=== PATIENT | male | born 1945 | race Caucasian/White ===

== ENCOUNTER 2023-09-07 12:22 | Outpatient (BNV) | payer MEDICARE, OTHER, SELFPAY | END 2023-09-10 10:00 | PROVIDERS: Admitting Provider Psychiatry & Neurology Psychiatry; Visit Provider Internal Medicine Cardiovascular Disease | DX: I45.2 Bifascicular block (principal) | CPT/HCPCS: 93010 ==

== ENCOUNTER 2023-09-07 12:22 | Inpatient (IN) | payer MEDICARE, OTHER, SELFPAY ==
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
[2023-09-07 17:00] VITALS: BP 127/70; PULSE 96; RESP 18; TEMP 36.1; O2SAT 99
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
--- NOTE | 2023-09-07 18:42 | PC.NURSE ---
Patient refusing VS monitoring until 17:00. Also agreed to sign consent for his , refused rest of the consents and assessments.
[2023-09-08] MEDS: traZODone HCL 50 MG TABLET PO (00:54)
[2023-09-08] MEDS: hydrOXYzine HCL 25 MG TABLET PO (00:54)
[2023-09-08 09:30] VITALS: BP 109/78; PULSE 81; RESP 18; TEMP 36.1; O2SAT 98
[2023-09-08 11:00] VITALS: BMI 33.7
[2023-09-08] MEDS: Escitalopram Oxalate 10 MG TABLET PO (11:26)
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
--- NOTE | 2023-09-08 17:08 | PC.NURSE ---
Patient agreed to adm.assessments after several attempts. Also agreed to skin assessment. Pt with healing laceration to abdominal wall, Red, dry, scaly skin to bilateral LE. Red areas on abdominal folds. Patient signed consent/release to [facility].
[2023-09-08 18:00] VITALS: BP 96/60; PULSE 96; RESP 16; TEMP 36.6; O2SAT 100
[2023-09-08] MEDS: Gabapentin 300 MG CAPSULE PO ×2 (21:10→21:15)
[2023-09-08] MEDS: Omeprazole 20 MG CAPSULE.DR PO (21:10)
[2023-09-08] MEDS: QUEtiapine Fumarate 100 MG TABLET PO (21:10)
--- NOTE | 2023-09-09 | ECG_ITS ---
Test Reason : chest pain Blood Pressure : / mmHG Vent. Rate : 087 BPM Atrial Rate : 087 BPM P-R Int : 178 ms QRS Dur : 138 ms QT Int : 408 ms P-R-T Axes : 086 -54 047 degrees QTc Int : 490 ms Sinus rhythm with Premature atrial complexes Right bundle branch block Left anterior fascicular block Bifascicular block Septal infarct , age undetermined Abnormal ECG No previous ECGs available Referred By: Perla Eng Electronically Signed By:RAYNA ZARAGOZA MD
[2023-09-09 07:00] VITALS: BMI 33.6
[2023-09-09 08:32] VITALS: BP 116/63; PULSE 80; RESP 18; TEMP 36.6; O2SAT 98
[2023-09-09] MEDS: Escitalopram Oxalate 10 MG TABLET PO (08:40)
[2023-09-09] MEDS: Atorvastatin Calcium 40 MG TABLET PO (08:40)
[2023-09-09] MEDS: Metoprolol Succinate ER 50 MG TAB.ER.24H PO (08:40)
[2023-09-09] MEDS: Omeprazole 20 MG CAPSULE.DR PO ×2 (08:41→20:43)
[2023-09-09] MEDS: Levothyroxine Sodium 50 MCG TABLET PO (08:41)
[2023-09-09] MEDS: hydrOXYzine HCL 25 MG TABLET PO ×2 (08:41→20:43)
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
--- NOTE | 2023-09-09 11:25 | PC.NURSE ---
Notified Dr. Eng that Salomón declined blood work this morning. Also requested from Dr. Eng that Gabapentin be changed fgrom 0900 to 2100 per Salomón's request.
[2023-09-09 14:21] VITALS: BMI 33.8
[2023-09-09 16:54] LABS: Magnesium 2.3 mg/dL (1.6-2.6)
[2023-09-09 17:27] LABS: Troponin-I High Sensitivity 99.1 ng/L (<3.5-35.0)
--- NOTE | 2023-09-09 17:40 | PC.NURSE ---
Troponin elevated 99.1 and Salomón currently denies chest pain. Trinity Magana QC CHEMIST notified.
[2023-09-09 18:00] VITALS: BP 148/88; PULSE 94; RESP 18; TEMP 36.4; O2SAT 99
[2023-09-09 19:14] LABS: Hematocrit 38.5 % (42.0-52.0); Hemoglobin 12.8 g/dl (14.0-18.0); Mean Corpuscular HGB Conc 33.2 g/dl (31.0-36.0); Mean Corpuscular Hemoglobin 32.8 pg (27.0-33.0); Mean Corpuscular Volume 98.7 fL (80.0-98.0); Mean Platelet Volume 11.8 fL (9.4-12.4); Platelet Count 257 X10*3/uL (160-400); Red Cell Distribution Width 15.1 % (11.0-16.0); White Blood Count 10.9 X10*3/uL (4.8-10.8)
[2023-09-09 19:31] LABS: Alanine Aminotransferase 37 U/L (0-40); Albumin Level 3.9 g/dL (3.5-5.0); Alkaline Phosphatase 87 U/L (39-117); Anion Gap 13 (12-20); Aspartate Amino Transferase 35 U/L (5-37); Bilirubin Direct 0.6 mg/dL (0.0-0.5); Bilirubin Total 1.7 mg/dL (0.0-1.0); Blood Urea Nitrogen 40 mg/dL (9-16); Calcium 9.3 mg/dL (8.4-10.2); Carbon Dioxide 25 mmol/L (22-29); Chloride 104 mmol/L (96-108); Creatinine Clr Calc Pharmacy 46.7; Estimated Glomerular Filt Rate 38; Glucose Random 95 mg/dL (60-115); Potassium 4.5 mmol/L (3.3-5.1); Sodium 137 mmol/L (135-145); Total Protein 7.9 g/dL (6.5-8.0)
[2023-09-09 19:37] LABS: Troponin-I High Sensitivity 92.7 ng/L (<3.5-35.0)
[2023-09-09] MEDS: QUEtiapine Fumarate 100 MG TABLET PO (20:43)
[2023-09-09] MEDS: Gabapentin 300 MG CAPSULE PO (20:43)
[2023-09-09] MEDS: traZODone HCL 50 MG TABLET PO (20:43)
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
--- NOTE | 2023-09-10 | ECG_ITS ---
Test Reason : r/o mi, hypoxic Blood Pressure : / mmHG Vent. Rate : 086 BPM Atrial Rate : 086 BPM P-R Int : 178 ms QRS Dur : 138 ms QT Int : 406 ms P-R-T Axes : 047 -58 035 degrees QTc Int : 485 ms Sinus rhythm with Premature atrial complexes Right bundle branch block Left anterior fascicular block Bifascicular block Septal infarct (cited on or before 09-SEP-2023) Abnormal ECG When compared with ECG of 09-SEP-2023 15:50, Questionable change in initial forces of Septal leads Referred By: Enzo Holland Electronically Signed By:RAYNA ZARAGOZA MD
[2023-09-10 04:50] VITALS: BP 124/75; PULSE 84; RESP 16; TEMP 35.9; O2SAT 99
[2023-09-10 05:06] VITALS: BP 124/75; PULSE 84; RESP 16; TEMP 35.9; O2SAT 99
[2023-09-10] MEDS: Levothyroxine Sodium 50 MCG TABLET PO ×2 (05:26→09:49)
[2023-09-10 08:24] LABS: Alanine Aminotransferase 35 U/L (0-40); Albumin Level 3.5 g/dL (3.5-5.0); Alkaline Phosphatase 74 U/L (39-117); Anion Gap 15 (12-20); Aspartate Amino Transferase 30 U/L (5-37); Bilirubin Total 1.4 mg/dL (0.0-1.0); Blood Urea Nitrogen 42 mg/dL (9-16); Calcium 8.9 mg/dL (8.4-10.2); Carbon Dioxide 23 mmol/L (22-29); Chloride 104 mmol/L (96-108); Cholesterol 109 mg/dL (<200); Estimated Glomerular Filt Rate 40; Glucose Fasting 102 mg/dL (60-99); HDL Cholesterol 27 mg/dL (>40); LDL Cholesterol Calculated 65 mg/dL (<100); Potassium 4.3 mmol/L (3.3-5.1); Sodium 138 mmol/L (135-145); Triglycerides 85 mg/dL (<150)
[2023-09-10 08:40] LABS: Thyroid Stimulating Hormone 7.45 uIU/mL (0.32-4.0)
[2023-09-10 08:48] LABS: Folate 5.1 ng/mL (> or = 4.0); Vitamin B12 429 pg/mL (200-900)
[2023-09-10 09:36] LABS: Troponin-I High Sensitivity 62.6 ng/L (<3.5-35.0)
[2023-09-10] MEDS: Atorvastatin Calcium 40 MG TABLET PO (09:48)
[2023-09-10] MEDS: Omeprazole 20 MG CAPSULE.DR PO ×2 (09:48→21:34)
[2023-09-10] MEDS: Escitalopram Oxalate 10 MG TABLET PO (09:48)
[2023-09-10] MEDS: Metoprolol Succinate ER 50 MG TAB.ER.24H PO (09:48)
[2023-09-10] MEDS: Aspirin 81 MG TAB.CHEW PO (09:57)
[2023-09-10 10:11] LABS: ABG Base Excess -2.7 mmol/L; ABG HCO3 21 mmol/L (22-26); ABG pCO2 34 mmHg (32-45); ABG pO2 102 mmHg (83-108)
[2023-09-10 10:15] VITALS: BP 104/60; PULSE 86; RESP 18; TEMP 36.9; O2SAT 99
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
[2023-09-10 18:00] VITALS: BP 111/74; PULSE 67; RESP 18; TEMP 36.1
[2023-09-10] MEDS: Gabapentin 300 MG CAPSULE PO (21:34)
[2023-09-10] MEDS: traZODone HCL 50 MG TABLET PO (21:34)
[2023-09-10] MEDS: hydrOXYzine HCL 25 MG TABLET PO (21:34)
[2023-09-10] MEDS: QUEtiapine Fumarate 100 MG TABLET PO (21:34)
[2023-09-10] MEDS: Acetaminophen 325 MG TABLET 650 MG PO (21:55)
[2023-09-11 08:49] VITALS: BP 97/60; PULSE 82; RESP 16; TEMP 36.3; O2SAT 100
--- NOTE | 2023-09-11 09:20 | PC.NURSE ---
BP 97/[address] Pulliam notified.
[2023-09-11] MEDS: Levothyroxine Sodium 50 MCG TABLET PO (09:27)
[2023-09-11] MEDS: Aspirin 81 MG TAB.CHEW PO (09:27)
[2023-09-11] MEDS: Atorvastatin Calcium 40 MG TABLET PO (09:27)
[2023-09-11] MEDS: Omeprazole 20 MG CAPSULE.DR PO ×2 (09:27→21:18)
[2023-09-11] MEDS: Escitalopram Oxalate 10 MG TABLET PO (09:27)
[2023-09-11] MEDS: Metoprolol Succinate ER 50 MG TAB.ER.24H PO (09:27)
[2023-09-11] MEDS: Acetaminophen 325 MG TABLET 650 MG PO ×2 (09:28→21:18)
--- NOTE | 2023-09-11 10:26 | P.PNPSI_ITS ---
Subjective Subjective Date of Service: 09/11/23 Reason For Visit: Major depressive disorder Subjective Notes: Conditional Voluntary Interim History: Met with patient. Discussed with Nursing. Overall quite talkative. Reports he has been feeling depressed in the context of his being at a alf for/ care facility. Went over admission circumstances and stated that he poked himself by accident with an item that resembled a sword fish. Was adamant he did not stab himself. Reported being uncertain regarding disposition in the context of his being in hospital. Reports feeling well cared for. Sleep has been okay. No med concerns. Feels safe. No SI. Medication Compliance: Yes Side effects from medications: No Attending Groups: Yes Review of Systems Acute medical concerns: No Review of Systems Review of Systems Nothing acute Mental Status Exam Mental Status Exam Patient Appearance: Appropriate Patient Orientation: Person and Situation Level of Consciousness: Awake and Appropriate Patient Behavior: Appropriate and Cooperative Mood Description: Calm Affect Description: Constricted Patient Cognition Impaired: Yes Ability to Follow Directions: Good Speech Pattern: Clear and Excessive Hallucinations: None Delusions: Not Present Thought Process: Distracted and Slowed Thinking Thought Content: positive for [place] and positive for Poverty of Content Judgement: Fair Diagnostics Vital Signs (24Hr): Vital Signs - 24 hr 09/10/23 18:00 09/11/23 08:49 Temperature 96.9 F 97.3 F Pulse Rate 67 82 Respiratory Rate 18 16 Blood Pressure 111/74 97/60 Pulse Oximetry 100 Oxygen Delivery Method Room Air BMI result Body Mass Index 33.8 Labs 09/09/23 19:05 09/10/23 07:30 Labs: Laboratory Results - last 48 hr 09/09/23 09/09/23 09/09/23 16:31 19:03 19:05 WBC 10.9 H RBC 3.90 L Hgb 12.8 L Hct 38.5 L MCV 98.7 H MCH 32.8 MCHC 33.2 RDW 15.1 Plt Count 257 MPV 11.8 Absolute Nucleated RBC 0.000 Nucleated RBC % (auto) 0.0 O2 Saturation ABG pH at Pt Temp ABG pCO2 at Pt Temp ABG pO2 at Pt Temp ABG HCO3 ABG Base Excess (Actual) Sodium 137 Potassium 4.5 Chloride 104 Carbon Dioxide 25 Anion Gap 13 BUN 40 H Creatinine 1.74 H Estim Creat Clear Calc 46.7 Estimated GFR 38 Random Glucose 95 Fasting Glucose Calcium 9.3 Magnesium 2.3 Total Bilirubin 1.7 H Direct Bilirubin 0.6 H AST 35 ALT 37 Alkaline Phosphatase 87 Total Creatine Kinase 48 Troponin I High Sens 99.1 H 92.7 H Total Protein 7.9 Albumin 3.9 Triglycerides Cholesterol LDL Cholesterol, Calc HDL Cholesterol Vitamin B12 Folate TSH 09/10/23 09/10/23 09/10/23 07:30 09:07 10:03 WBC RBC Hgb Hct MCV MCH MCHC RDW Plt Count MPV Absolute Nucleated RBC Nucleated RBC % (auto) O2 Saturation 99.0 ABG pH at Pt Temp 7.40 ABG pCO2 at Pt Temp 34 ABG pO2 at Pt Temp 102 ABG HCO3 21 L ABG Base Excess (Actual) -2.7 Sodium 138 Potassium 4.3 Chloride 104 Carbon Dioxide 23 Anion Gap 15 BUN 42 H Creatinine 1.66 H Estim Creat Clear Calc 49.0 Estimated GFR 40 Random Glucose Fasting Glucose 102 H Calcium 8.9 Magnesium Total Bilirubin 1.4 H Direct Bilirubin AST 30 ALT 35 Alkaline Phosphatase 74 Total Creatine Kinase 51 Cancelled Troponin I High Sens 62.6 H Total Protein 7.0 Albumin 3.5 Triglycerides 85 Cholesterol 109 LDL Cholesterol, Calc 65 HDL Cholesterol 27 L Vitamin B12 429 Folate 5.1 TSH 7.45 H Medications Medications Current Medications Acetaminophen (Acetaminophen 325 Mg Tablet) 650 mg PO Q6H PRN PRN Reason: Headache/Pain Mild Scale (1-3) Last Admin: 09/11/23 09:28 Dose: 650 mg Al Hydroxide/Mg Hydroxide (Magnesium Hydrox/Alum Hydrox 30 Ml Oral.Susp) 30 ml PO Q6H PRN PRN Reason: Heartburn/Nausea Aspirin (Aspirin 81 Mg Tab.Chew) 81 mg PO DAILY [facility] Last Admin: 09/11/23 09:27 Dose: 81 mg Atorvastatin Calcium (Atorvastatin Calcium 40 Mg Tablet) 40 mg PO DAILY [facility] Last Admin: 09/11/23 09:27 Dose: 40 mg Dorzolamide/Timolol (Dorzolamide/Timolo 2.23%/0.68% 10 Ml Drbtl) 1 drop EYE- BOTH BID [facility] Last Admin: 09/11/23 09:33 Dose: Not Given Escitalopram Oxalate (Escitalopram Oxalate 10 Mg Tablet) 10 mg PO DAILY [facility] Last Admin: 09/11/23 09:27 Dose: 10 mg Gabapentin (Gabapentin 300 Mg Capsule) 300 mg PO BEDTIME [facility] Last Admin: 09/10/23 21:34 Dose: 300 mg Hydrocortisone (Hydrocortisone 1 % Cream 28.35 Gm Tube) 1 appl TOPICAL BID [facility] Last Admin: 09/11/23 09:33 Dose: Not Given Hydroxyzine HCl (Hydroxyzine Hcl 25 Mg Tablet) 25 mg PO Q6H PRN PRN Reason: Anxiety Last Admin: 09/10/23 21:34 Dose: 25 mg Lactic Acid (Ammonium Lactate 12 % Lotion 226 Gm Bottle) 1 appl TOPICAL BID [facility]; Protocol Last Admin: 09/11/23 09:33 Dose: Not Given Latanoprost (Latanoprost 0.005 % Ophth Misty 2.5 Ml Drops) 1 drop EYE-BOTH BEDTIME [facility] Last Admin: 09/10/23 21:41 Dose: Not Given Levothyroxine Sodium (Levothyroxine Sodium 50 Mcg Tablet) 50 mcg PO DAILY [facility] Last Admin: 09/11/23 09:27 Dose: 50 mcg Magnesium Hydroxide (Milk Of Magnesia 30 Ml Oral.Susp) 30 ml PO DAILY PRN PRN Reason: Constipation Metoprolol Succinate (Metoprolol Succinate Er 50 Mg Tab.Er.24h) 50 mg PO DAILY [facility]; Protocol Last Admin: 09/11/23 09:27 Dose: 50 mg Omeprazole (Omeprazole 20 Mg Capsule.Dr) 20 mg PO BID [facility] Last Admin: 09/11/23 09:27 Dose: 20 mg Quetiapine Fumarate (Quetiapine Fumarate 100 Mg Tablet) 100 mg PO BEDTIME [facility] Last Admin: 09/10/23 21:34 Dose: 100 mg Quetiapine Fumarate (Quetiapine Fumarate 50 Mg Tablet) 50 mg PO BID PRN PRN Reason: agitation Trazodone HCl (Trazodone Hcl 50 Mg Tablet) 50 mg PO BEDTIME MRX1 PRN PRN Reason: Insomnia Last Admin: 09/10/23 21:34 Dose: 50 mg Allergies Allergies Allergy/AdvReac Type Severity Reaction Status Date / Time No Known Allergies Allergy Verified 09/07/23 14:57 Assessment & Plan Assessment & Plan (1) Elevated troponin: Status: Acute Code(s): R79.89 - Other specified abnormal findings of blood chemistry Assessment and Plan: Elevated troponin in this elderly gentleman with known history of prior CAD. Should obtain old records. This is most likely due to stress created by the roommate situation. Since the situation has changed his not having any significant stress and he is feeling well. Troponins are downtrending. There are no acute ischemic changes. I would continue with metoprolol 50 mg daily along with aspirin and statin therapy. Continue treat his psychiatric disorder and treat his anxiety. No further treatment needs to be pursued. Plan 1. We will try to gather more collateral information. It seems that in the community the patient and his 2. Continue with Lexapro to target depression and anxiety. 3. Continue with medical treatment for his several health problems. 4. Reassessment with results. 09/10: no changes Reason for continued inpatient stay Substantial Risk for: harm to self and rapid decompensation Time Spent With Patient Time: Total time managing care of this patient today ____ minutes.
[2023-09-11 10:37] VITALS: BP 112/65
--- NOTE | 2023-09-11 10:53 | PC.NURSE ---
Recheck of bp 112/65 and / Shasha notified.
[2023-09-11 18:00] VITALS: BP 121/68; PULSE 73; RESP 18; TEMP 36.7; O2SAT 98
[2023-09-11] MEDS: traZODone HCL 50 MG TABLET PO (21:18)
[2023-09-11] MEDS: QUEtiapine Fumarate 100 MG TABLET PO (21:18)
[2023-09-11] MEDS: Gabapentin 300 MG CAPSULE PO (21:19)
[2023-09-11] MEDS: hydrOXYzine HCL 25 MG TABLET PO (21:19)
[2023-09-12 08:45] VITALS: BP 110/65; PULSE 64; RESP 16; TEMP 36.6; O2SAT 98
[2023-09-12] MEDS: Atorvastatin Calcium 40 MG TABLET PO (09:03)
[2023-09-12] MEDS: Escitalopram Oxalate 10 MG TABLET PO (09:03)
[2023-09-12] MEDS: Metoprolol Succinate ER 50 MG TAB.ER.24H PO (09:03)
[2023-09-12] MEDS: Omeprazole 20 MG CAPSULE.DR PO ×2 (09:03→20:18)
[2023-09-12] MEDS: Aspirin 81 MG TAB.CHEW PO (09:03)
[2023-09-12] MEDS: Levothyroxine Sodium 50 MCG TABLET PO (09:04)
[2023-09-12] MEDS: Acetaminophen 325 MG TABLET 650 MG PO ×2 (09:06→20:21)
--- NOTE | 2023-09-12 11:02 | P.PNPSI_ITS ---
Subjective Subjective Date of Service: 09/12/23 Reason For Visit: Major depressive disorder Interim History: Met with patient. Discussed with Nursing. Overall quite talkative, but redirectable. Still uncertainty ref disposition in the context of his being in hospital. Reports feeling well cared for. Sleep has been okay. No med concerns. Feels safe. No SI. Medication Compliance: Yes Side effects from medications: No Attending Groups: Intermittent Review of Systems Acute medical concerns: No Review of Systems Review of Systems Nothing acute Mental Status Exam Mental Status Exam Patient Appearance: Appropriate Patient Orientation: Person and Situation Level of Consciousness: Awake and Appropriate Patient Behavior: Appropriate and Cooperative Mood Description: Calm Affect Description: Constricted Patient Cognition Impaired: Yes Ability to Follow Directions: Good Speech Pattern: Clear and Excessive Diagnostics Vital Signs (24Hr): Vital Signs - 24 hr 09/11/23 18:00 09/12/23 08:45 Temperature 98.1 F 97.8 F Pulse Rate 73 64 Respiratory Rate 18 16 Blood Pressure 121/68 110/65 Pulse Oximetry 98 98 Oxygen Delivery Method Room Air Room Air BMI result Body Mass Index 33.8 Labs 09/09/23 19:05 09/10/23 07:30 Medications Medications Current Medications Acetaminophen (Acetaminophen 325 Mg Tablet) 650 mg PO Q6H PRN PRN Reason: Headache/Pain Mild Scale (1-3) Last Admin: 09/12/23 09:06 Dose: 650 mg Al Hydroxide/Mg Hydroxide (Magnesium Hydrox/Alum Hydrox 30 Ml Oral.Susp) 30 ml PO Q6H PRN PRN Reason: Heartburn/Nausea Aspirin (Aspirin 81 Mg Tab.Chew) 81 mg PO DAILY [facility] Last Admin: 09/12/23 09:03 Dose: 81 mg Atorvastatin Calcium (Atorvastatin Calcium 40 Mg Tablet) 40 mg PO DAILY [facility] Last Admin: 09/12/23 09:03 Dose: 40 mg Dorzolamide/Timolol (Dorzolamide/Timolo 2.23%/0.68% 10 Ml Drbtl) 1 drop EYE- BOTH BID [facility] Last Admin: 09/12/23 09:05 Dose: Not Given Escitalopram Oxalate (Escitalopram Oxalate 10 Mg Tablet) 10 mg PO DAILY [facility] Last Admin: 09/12/23 09:03 Dose: 10 mg Gabapentin (Gabapentin 300 Mg Capsule) 300 mg PO BEDTIME [facility] Last Admin: 09/11/23 21:19 Dose: 300 mg Hydrocortisone (Hydrocortisone 1 % Cream 28.35 Gm Tube) 1 appl TOPICAL BID [facility] Last Admin: 09/12/23 09:06 Dose: Not Given Hydroxyzine HCl (Hydroxyzine Hcl 25 Mg Tablet) 25 mg PO Q6H PRN PRN Reason: Anxiety Last Admin: 09/11/23 21:19 Dose: 25 mg Lactic Acid (Ammonium Lactate 12 % Lotion 226 Gm Bottle) 1 appl TOPICAL BID [facility]; Protocol Last Admin: 09/12/23 09:06 Dose: Not Given Latanoprost (Latanoprost 0.005 % Ophth Misty 2.5 Ml Drops) 1 drop EYE-BOTH BEDTIME [facility] Last Admin: 09/11/23 21:42 Dose: Not Given Levothyroxine Sodium (Levothyroxine Sodium 50 Mcg Tablet) 50 mcg PO DAILY [facility] Last Admin: 09/12/23 09:04 Dose: 50 mcg Magnesium Hydroxide (Milk Of Magnesia 30 Ml Oral.Susp) 30 ml PO DAILY PRN PRN Reason: Constipation Metoprolol Succinate (Metoprolol Succinate Er 50 Mg Tab.Er.24h) 50 mg PO DAILY [facility]; Protocol Last Admin: 09/12/23 09:03 Dose: 50 mg Omeprazole (Omeprazole 20 Mg Capsule.Dr) 20 mg PO BID [facility] Last Admin: 09/12/23 09:03 Dose: 20 mg Quetiapine Fumarate (Quetiapine Fumarate 100 Mg Tablet) 100 mg PO BEDTIME [facility] Last Admin: 09/11/23 21:18 Dose: 100 mg Quetiapine Fumarate (Quetiapine Fumarate 50 Mg Tablet) 50 mg PO BID PRN PRN Reason: agitation Trazodone HCl (Trazodone Hcl 50 Mg Tablet) 50 mg PO BEDTIME MRX1 PRN PRN Reason: Insomnia Last Admin: 09/11/23 21:18 Dose: 50 mg Allergies Allergies Allergy/AdvReac Type Severity Reaction Status Date / Time No Known Allergies Allergy Verified 09/07/23 14:57 Assessment & Plan Assessment & Plan (1) Elevated troponin: Status: Acute Code(s): R79.89 - Other specified abnormal findings of blood chemistry Assessment and Plan: Elevated troponin in this elderly gentleman with known history of prior CAD. Should obtain old records. This is most likely due to stress created by the roommate situation. Since the situation has changed his not having any significant stress and he is feeling well. Troponins are downtrending. There are no acute ischemic changes. I would continue with metoprolol 50 mg daily along with aspirin and statin therapy. Continue treat his psychiatric disorder and treat his anxiety. No further treatment needs to be pursued. Plan 1. We will try to gather more collateral information. It seems that in the community the patient and his 2. Continue with Lexapro to target depression and anxiety. 3. Continue with medical treatment for his several health problems. 4. Reassessment with results. 09/10: no changes 09/11: no changes Reason for continued inpatient stay Substantial Risk for: inability to function and rapid decompensation Time Spent With Patient Time: Total time managing care of this patient today ____ minutes.
[2023-09-12 19:35] VITALS: BP 106/69; PULSE 77; RESP 18; TEMP 36.3; O2SAT 98
[2023-09-12] MEDS: QUEtiapine Fumarate 100 MG TABLET PO (20:18)
[2023-09-12] MEDS: Gabapentin 300 MG CAPSULE PO (20:18)
[2023-09-12] MEDS: traZODone HCL 50 MG TABLET PO (20:21)
[2023-09-13] MEDS: Acetaminophen 325 MG TABLET 650 MG PO ×2 (02:29→20:10)
[2023-09-13 07:45] VITALS: BP 97/64; PULSE 65; RESP 16; TEMP 36.4; O2SAT 97
[2023-09-13] MEDS: Aspirin 81 MG TAB.CHEW PO (08:59)
[2023-09-13] MEDS: Escitalopram Oxalate 10 MG TABLET PO (08:59)
[2023-09-13] MEDS: Atorvastatin Calcium 40 MG TABLET PO (08:59)
[2023-09-13] MEDS: Omeprazole 20 MG CAPSULE.DR PO ×2 (08:59→20:07)
[2023-09-13] MEDS: Levothyroxine Sodium 50 MCG TABLET PO (09:00)
--- NOTE | 2023-09-13 12:27 | P.PNPSI_ITS ---
Subjective Subjective Date of Service: 09/13/23 Reason For Visit: Major depressive disorder Subjective Notes: Conditional Voluntary Interim History: The nursing staff reported the patient had been pleasant cooperative calm eating well. He has not attended any groups and he slept for 5 hours last night. The staff has noticed the patient has a fungal rash in his perineum. On interview the patient denies new symptoms, denies active suicidal ideation. Mental Status Exam Mental Status Exam Patient Appearance: Appropriate Patient Orientation: Person and Situation Level of Consciousness: Awake Patient Behavior: Guarded and Passive Mood Description: Withdrawn Affect Description: Constricted Patient Cognition Impaired: Yes Ability to Follow Directions: Good Speech Pattern: Clear Hallucinations: None Delusions: Not Present Thought Process: Distracted and Slowed Thinking Thought Content: positive for [place] and positive for Poverty of Content Judgement: Fair Diagnostics Vital Signs (24Hr): Vital Signs - 24 hr 09/12/23 19:35 09/13/23 07:45 Temperature 97.3 F 97.5 F Pulse Rate 77 65 Respiratory Rate 18 16 Blood Pressure 106/69 97/64 Pulse Oximetry 98 97 Oxygen Delivery Method Room Air Room Air BMI result Body Mass Index 33.8 Labs 09/09/23 19:05 09/10/23 07:30 Medications Medications Current Medications Acetaminophen (Acetaminophen 325 Mg Tablet) 650 mg PO Q6H PRN PRN Reason: Headache/Pain Mild Scale (1-3) Last Admin: 09/13/23 02:29 Dose: 650 mg Al Hydroxide/Mg Hydroxide (Magnesium Hydrox/Alum Hydrox 30 Ml Oral.Susp) 30 ml PO Q6H PRN PRN Reason: Heartburn/Nausea Aspirin (Aspirin 81 Mg Tab.Chew) 81 mg PO DAILY [facility] Last Admin: 09/13/23 08:59 Dose: 81 mg Atorvastatin Calcium (Atorvastatin Calcium 40 Mg Tablet) 40 mg PO DAILY [facility] Last Admin: 09/13/23 08:59 Dose: 40 mg Dorzolamide/Timolol (Dorzolamide/Timolo 2.23%/0.68% 10 Ml Drbtl) 1 drop EYE- BOTH BID [facility] Last Admin: 09/13/23 09:06 Dose: Not Given Escitalopram Oxalate (Escitalopram Oxalate 10 Mg Tablet) 10 mg PO DAILY [facility] Last Admin: 09/13/23 08:59 Dose: 10 mg Gabapentin (Gabapentin 300 Mg Capsule) 300 mg PO BEDTIME [facility] Last Admin: 09/12/23 20:18 Dose: 300 mg Hydrocortisone (Hydrocortisone 1 % Cream 28.35 Gm Tube) 1 appl TOPICAL BID [facility] Last Admin: 09/13/23 09:06 Dose: Not Given Hydroxyzine HCl (Hydroxyzine Hcl 25 Mg Tablet) 25 mg PO Q6H PRN PRN Reason: Anxiety Last Admin: 09/11/23 21:19 Dose: 25 mg Lactic Acid (Ammonium Lactate 12 % Lotion 226 Gm Bottle) 1 appl TOPICAL BID [facility]; Protocol Last Admin: 09/13/23 10:09 Dose: Not Given Latanoprost (Latanoprost 0.005 % Ophth Misty 2.5 Ml Drops) 1 drop EYE-BOTH BEDTIME [facility] Last Admin: 09/12/23 20:18 Dose: Not Given Levothyroxine Sodium (Levothyroxine Sodium 50 Mcg Tablet) 50 mcg PO DAILY [facility] Last Admin: 09/13/23 09:00 Dose: 50 mcg Magnesium Hydroxide (Milk Of Magnesia 30 Ml Oral.Susp) 30 ml PO DAILY PRN PRN Reason: Constipation Metoprolol Succinate (Metoprolol Succinate Er 50 Mg Tab.Er.24h) 50 mg PO DAILY [facility]; Protocol Last Admin: 09/13/23 09:00 Dose: Not Given Omeprazole (Omeprazole 20 Mg Capsule.Dr) 20 mg PO BID [facility] Last Admin: 09/13/23 08:59 Dose: 20 mg Quetiapine Fumarate (Quetiapine Fumarate 100 Mg Tablet) 100 mg PO BEDTIME [facility] Last Admin: 09/12/23 20:18 Dose: 100 mg Quetiapine Fumarate (Quetiapine Fumarate 50 Mg Tablet) 50 mg PO BID PRN PRN Reason: agitation Trazodone HCl (Trazodone Hcl 50 Mg Tablet) 50 mg PO BEDTIME MRX1 PRN PRN Reason: Insomnia Last Admin: 09/12/23 20:21 Dose: 50 mg Allergies Allergies Allergy/AdvReac Type Severity Reaction Status Date / Time No Known Allergies Allergy Verified 09/07/23 14:57 Assessment & Plan Assessment & Plan (1) Elevated troponin: Status: Acute Code(s): R79.89 - Other specified abnormal findings of blood chemistry Assessment and Plan: Elevated troponin in this elderly gentleman with known history of prior CAD. Should obtain old records. This is most likely due to stress created by the roommate situation. Since the situation has changed his not having any significant stress and he is feeling well. Troponins are downtrending. There are no acute ischemic changes. I would continue with metoprolol 50 mg daily along with aspirin and statin therapy. Continue treat his psychiatric disorder and treat his anxiety. No further treatment needs to be pursued. Plan 1. We will try to gather more collateral information. It seems that in the community the patient and his 2. Continue with Lexapro to target depression and anxiety. 3. Continue with medical treatment for his several health problems. 4. Reassessment with results. Plan Elderly male with a past history of depression and anxiety who was brought to the emergency room of another hospital after he had injuries on his abdomen, self-inflicted but as per the patient he adamantly denies suicidal attempt it was an accident. It seems that the patient and his have been self neglected in the community. Plan 1. We will try to gather more collateral information. It seems that in the community the patient and his 2. Continue with Lexapro to target depression and anxiety. 3. Continue with medical treatment for his several health problems. 4. Reassessment with results. Reason for continued inpatient stay Substantial Risk for: inability to function, rapid decompensation and med/psych decompensation Time Spent With Patient Time: Total time managing care of this patient today __20__ minutes.
[2023-09-13 19:30] VITALS: BP 110/65; PULSE 86; RESP 16; TEMP 36.2; O2SAT 100
[2023-09-13] MEDS: QUEtiapine Fumarate 100 MG TABLET PO (20:07)
[2023-09-13] MEDS: Gabapentin 300 MG CAPSULE PO (20:07)
[2023-09-13] MEDS: Ammonium Lactate 12 % Lotion 226 GM BOTTLE 1 APPL TOPICAL (20:22)
[2023-09-13] MEDS: Hydrocortisone 1 % Cream 28.35 GM TUBE 1 APPL TOPICAL (20:22)
--- NOTE | 2023-09-14 01:32 | ECG_ITS ---
Test Reason : chest pain Blood Pressure : / mmHG Vent. Rate : 093 BPM Atrial Rate : 091 BPM P-R Int : 200 ms QRS Dur : 142 ms QT Int : 398 ms P-R-T Axes : 096 -51 049 degrees QTc Int : 494 ms Undetermined rhythm Right bundle branch block Left anterior fascicular block Bifascicular block Septal infarct (cited on or before 09-SEP-2023) Abnormal ECG When compared with ECG of 10-SEP-2023 10:00, Current undetermined rhythm precludes rhythm comparison, needs review Questionable change in initial forces of Septal leads Referred By: Waylon Wick Electronically Signed By:
[2023-09-14] MEDS: Acetaminophen 325 MG TABLET 650 MG PO (01:38)
[2023-09-14] MEDS: hydrOXYzine HCL 25 MG TABLET PO (01:38)
[2023-09-14] MEDS: traZODone HCL 50 MG TABLET PO (01:38)
[2023-09-14 03:40] LABS: Troponin-I High Sensitivity 41.2 ng/L (<3.5-35.0)
[2023-09-14 08:06] VITALS: BP 125/74; PULSE 74; RESP 18; TEMP 36.2; O2SAT 97
[2023-09-14] MEDS: Aspirin 81 MG TAB.CHEW PO (08:24)
[2023-09-14] MEDS: Omeprazole 20 MG CAPSULE.DR PO (08:25)
[2023-09-14] MEDS: Levothyroxine Sodium 50 MCG TABLET PO (08:25)
[2023-09-14] MEDS: Atorvastatin Calcium 40 MG TABLET PO (08:25)
[2023-09-14] MEDS: Metoprolol Succinate ER 50 MG TAB.ER.24H PO (08:25)
--- NOTE | 2023-09-14 09:12 | P.EN_ITS ---
Event Note Date of Service: 09/14/23 Event Note: 77 year old male again experiencing chest pain related to room mate situation. Hospitalist made aware overnight who ordered trop which was elevated at 41. Currently asymptomatic. Describes a retrosternal chest tightness/pressure associated with palpitations that occurred in the middle of the night. Denies any specific trigger. He states he was getting his bed ready when the chest pain came on. He states having the EKG performed made him feel stressed and sc ared he did practice deep breathing and relaxation techniques and was given anxiety medication with improvement in symptoms. Second trop drawn this morning was 1100. EKG was without any acute ischemic changes. He will be transferred to med/tele for further management of NSTEMI. Discussed with cardiology and psychiatry Time Spent With Patient Time: Total time managing care of this patient today ____ minutes.
[2023-09-14] MEDS: Escitalopram Oxalate 10 MG TABLET PO (09:52)
[2023-09-14 10:16] LABS: Troponin-I High Sensitivity 1135.9 ng/L (<3.5-35.0)
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
--- NOTE | 2023-09-14 10:33 | PC.NURSE ---
Patient seen by Jeannie WILDER today. Lab results with critical Troponin level. Will give one time dose Lovenox 120mg Sub Q when available, pharmacy called already for med. Patient denies chest pain, shortness of breath and vertigo. Vital signs B/P 108/56, 100% O2 Sat on room air, T 97.1 and P65. Patient alert and oriented x4. Dr Holland updated patient about a transfer to [facility] today.
[2023-09-14] MEDS: Aspirin 81 MG TAB.CHEW 243 MG PO (10:52)
== END 2023-09-14 11:01 | disposition short-term general hospital (02) | DRG 881 ==
PROVIDERS: Clinical Nurse Specialist Psychiatric/Mental Health; Physician Assistant; Student in an Organized Health Care Education/Training Program; Admitting Provider Psychiatry & Neurology Psychiatry; Visit Provider Psychiatry & Neurology Psychiatry
DX: F32.9 Major depressive disorder, single episode, unspecified (principal); S31.119A Laceration without foreign body of abdominal wall, unspecified quadrant without penetration into peritoneal cavity, initial encounter; X78.9XXA Intentional self-harm by unspecified sharp object, initial encounter; I25.10 Atherosclerotic heart disease of native coronary artery without angina pectoris; E03.9 Hypothyroidism, unspecified; R79.89 Other specified abnormal findings of blood chemistry; L30.9 Dermatitis, unspecified; F03.90 Unspecified dementia, unspecified severity, without behavioral disturbance, psychotic disturbance, mood disturbance, and anxiety; I10 Essential (primary) hypertension; L82.1 Other seborrheic keratosis; E78.5 Hyperlipidemia, unspecified; G47.33 Obstructive sleep apnea (adult) (pediatric); Z91.199 Patient's noncompliance with other medical treatment and regimen due to unspecified reason; Z87.891 Personal history of nicotine dependence; Z79.02 Long term (current) use of antithrombotics/antiplatelets; Z79.890 Hormone replacement therapy; Z79.899 Other long term (current) drug therapy
CPT/HCPCS: 36415; 80053; 80061; 80076; 82550; 82607; 82746; 82803; 83735; 84443; 84484; 85027; 93005

== ENCOUNTER 2023-09-07 12:22 | Outpatient (BNV) | payer MEDICARE, OTHER, SELFPAY | END 2023-09-09 15:50 | PROVIDERS: Admitting Provider Psychiatry & Neurology Psychiatry; Visit Provider Internal Medicine Cardiovascular Disease | DX: I45.2 Bifascicular block (principal) | CPT/HCPCS: 93010 ==

== ENCOUNTER → 2023-09-07 12:22 | Outpatient (BNV) | payer MEDICARE, OTHER, SELFPAY | PROVIDERS: Admitting Provider Psychiatry & Neurology Psychiatry; Visit Provider Physician Assistant | DX: S31.119A Laceration without foreign body of abdominal wall, unspecified quadrant without penetration into peritoneal cavity, initial encounter (principal) | CPT/HCPCS: 99222; 99499 ==

== ENCOUNTER → 2023-09-07 12:22 | Outpatient (BNV) | payer MEDICARE, OTHER, SELFPAY | PROVIDERS: Admitting Provider Psychiatry & Neurology Psychiatry; Visit Provider Psychiatry & Neurology Psychiatry | DX: F32.2 Major depressive disorder, single episode, severe without psychotic features (principal); R79.89 Other specified abnormal findings of blood chemistry | CPT/HCPCS: 90792; 99231; 99232; 99238 ==

== ENCOUNTER → 2023-09-07 12:22 | Outpatient (BNV) | payer MEDICARE, OTHER, SELFPAY | PROVIDERS: Admitting Provider Psychiatry & Neurology Psychiatry; Visit Provider Internal Medicine Cardiovascular Disease | DX: R79.89 Other specified abnormal findings of blood chemistry (principal); R07.9 Chest pain, unspecified | CPT/HCPCS: 99222 ==

== ENCOUNTER 2023-09-14 11:15 | Inpatient (IN) | payer MEDICARE, OTHER, SELFPAY ==
--- NOTE | 2023-09-14 07:00 | CA_ITS ---
Transthoracic Echocardiogram Patient (Last, First, Middle): Salomón Grullon, Gender: Male Date of : 1945 Age: 77 Procedure Date: 09/14/2023 Procedure Type: Transthoracic Echocardiogram Location: [facility] [place] Height: 185.42 cm Weight: 116.12 kg BSA: 2.39 m2 Heart Rate: bpm BP: 125 / 74 mmHg Corporate Giving Manager: Referring MD: Jeannie WILDER Geotechnical Engineer: Gregg Rowley MD Symptoms: nstemi Study Quality: Technically Difficult ECG Rhythm: Sinus Conclusions: - 1. Technically limited study as parasternal windows could not be obtained 2. Low normal LVEF of 50-55% with grade 2 diastolic dysfunction with possible regional wall motion abnormality in the mid to distal LAD territory 3. At least mild aortic stenosis 4. Normal measured RV systolic pressure Findings Procedure Information Contrast agent, definity, is being given per protocol without apparent complications. Left Ventricle Normal left ventricular cavity size. The left ventricular systolic function is low normal. The visually estimated ejection fraction is between 50-55%. There is evidence of regional wall motion abnormalities. Spectral Doppler is indicative of a pseudonormal filling pattern. E/E prime ratio is >15, consistent with elevated filling pressures. Evidence suggests grade II (moderate) diastolic dysfunction. Wall Motion Rest Echo Findings The mid anteroseptal segment is hypokinetic. The apex and apical septum segments are akinetic. All other scored wall segments showed normal motion. Right Ventricle Normal right ventricular cavity size and systolic function. Atria The left atrium is severely dilated. Interatrial shunt cannot be excluded. The right atrium is normal in size. Aortic Valve The aortic valve was not well visualized. There is mild calcification of the aortic valve. There is mild aortic valve stenosis. The peak aortic gradient is 17 mmHg.The mean gradient is 10 mmHg. Mitral Valve There is moderate anterior and posterior mitral leaflet thickening. There is moderate anterior and moderate posterior mitral annular calcification. There is trace mitral valve regurgitation. Pulmonic Valve The pulmonic valve was not well visualized. Tricuspid Valve Likely normal tricuspid valve structure and function. There is trace tricuspid valve regurgitation. The right ventricular systolic pressure is normal. The right ventricular systolic pressure is 19 mmHg. Normal right atrial pressure. Great Vessels The aorta was not well visualized. The pulmonary artery was not well visualized. Venous The inferior vena cava is normal in size and collapses greater than 50% with inspiration. Pericardium/Pleural The pericardium was not well visualized. Prior Study Comparison No prior study available for comparison. Measurements 2D Linear Measurements LVOT Diam: 2.80 3.0+(-)1.3 cm 2D Systolic Function EF 4C: 51.80 >55% EF 2C: 49.60 >55% EF BiP: 50.90 >55% Mitral Valve MV VTI: 0.51 MV Pk Yuniel: 1.32 MV Mn Yuniel: 0.91 MV Pk Grad: 7.00 MV Mn Grad: 4.00 MV Pk E: 1.25 MV PK A: 1.27 MV Decel Time: 233.00 E/A: 1.00 E'Lateral: 6.96 E'Medial: 4.79 E/E' Med: 26.10 E/E' Lat: 18.00 PHT: 68.00 MVA PHT: 3.24 MVA Continuity: 4.40 Decel [place]: 5.35 Aortic Valve AoV Pk Yuniel: 2.08 AoV Mn Yuniel: 1.46 AoV VTI: 0.49 AoV Pk Grad: 17.00 Aov Mn Grad: 10.00 LVOT LVOT Pk Yuniel: 1.44 LVOT Mn Yuniel: 1.05 LVOT VTI: 0.36 LVOT Pk Grad: 8.00 LVOT Mn Grad: 5.00 LVOT Diam: 2.80 LVOT Area: 6.16 Diastolic Function MV Pk E: 1.25 MV Pk A: 1.27 E/A: 1.00 E'Medial: 4.79 E/E' Med: 26.10 E' Laterial: 6.96 E/E' Lat: 18.00 Right Ventricle TAPSE (mm): 28.00 TVS' Yuniel: 15.00 Tricuspid Valve TR Pk Yuniel: 2.00 TR Pk Grad: 16.00 RA Press: 3.00 RVSP: 19.00 Updated in Other Vendor System with Status of Final Gregg Rowley MD electronically signed on 09/15/2023 11:54:39 AM with status of Final
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
[2023-09-14 12:00] VITALS: BP 100/65; PULSE 62; RESP 16; TEMP 36.4; O2SAT 100
[2023-09-14 12:14] LABS: Hematocrit 33.7 % (42.0-52.0); Hemoglobin 11.4 g/dl (14.0-18.0); Mean Corpuscular HGB Conc 33.8 g/dl (31.0-36.0); Mean Corpuscular Hemoglobin 33.8 pg (27.0-33.0); Red Blood Count 3.37 X10*6/uL (4.60-5.80); Red Cell Distribution Width 15.3 % (11.0-16.0); White Blood Count 5.8 X10*3/uL (4.8-10.8)
[2023-09-14 12:20] LABS: Prothrombin Time 12.4 SEC (11.1-13.3)
[2023-09-14 12:24] LABS: Partial Thromboplastin Time 28.9 SEC (26.0-36.8)
--- NOTE | 2023-09-14 12:24 | PHA.MEDREC ---
Pharmacy Consult ? Medication Reconciliation Pharmacy has completed the medication reconciliation. Patient transferred from [facility]
[2023-09-14 12:30] LABS: Estimated Glomerular Filt Rate 56
[2023-09-14 12:47] VITALS: BMI 35.8
[2023-09-14] MEDS: Enoxaparin Sodium 100 MG/ML SYRINGE SUBCUT (13:10)
[2023-09-14] MEDS: 0.9 % Sodium Chloride Flush 3 ML SYRINGE IVFLUSH (16:48)
[2023-09-14] MEDS: Omeprazole 20 MG CAPSULE.DR PO (16:48)
[2023-09-14 19:25] VITALS: BP 108/59; PULSE 62; RESP 16; TEMP 36.8; O2SAT 94
[2023-09-14] MEDS: Latanoprost 0.005 % Ophth Sol 2.5 ML DROPS 1 DROP EYE-BOTH (22:03)
[2023-09-14] MEDS: Gabapentin 300 MG CAPSULE PO (22:03)
[2023-09-14] MEDS: QUEtiapine Fumarate 100 MG TABLET PO (22:03)
[2023-09-14] MEDS: Ammonium Lactate 12 % Lotion 226 GM BOTTLE 1 APPL TOPICAL (22:03)
[2023-09-14] MEDS: Dorzolamide/Timolo 2.23%/0.68% 10 ML DRBTL 1 DROP EYE-BOTH (22:03)
[2023-09-14] MEDS: Hydrocortisone 1 % Cream 28.35 GM TUBE 1 APPL TOPICAL (22:04)
[2023-09-14 22:43] LABS: Anion Gap 11 (12-20); Blood Urea Nitrogen 25 mg/dL (9-16); Calcium 8.4 mg/dL (8.4-10.2); Carbon Dioxide 26 mmol/L (22-29); Chloride 108 mmol/L (96-108); Creatinine Clr Calc Pharmacy 63.8; Estimated Glomerular Filt Rate 53; Glucose Random 99 mg/dL (60-115); Potassium 4.2 mmol/L (3.3-5.1); Sodium 141 mmol/L (135-145)
[2023-09-14 23:10] LABS: Troponin-I High Sensitivity 1917.1 ng/L (<3.5-35.0)
[2023-09-14 23:47] VITALS: BP 116/67; PULSE 69; RESP 16; TEMP 36.4; O2SAT 100
[2023-09-15] MEDS: Enoxaparin Sodium 100 MG/ML SYRINGE SUBCUT ×2 (02:14→13:46)
[2023-09-15] MEDS: 0.9 % Sodium Chloride Flush 3 ML SYRINGE IVFLUSH ×3 (02:15→16:00)
[2023-09-15 03:53] VITALS: BP 144/78; PULSE 57; RESP 16; TEMP 36.2; O2SAT 98
[2023-09-15 07:07] VITALS: BP 118/73; PULSE 71; RESP 20; TEMP 36.4; O2SAT 98
[2023-09-15] MEDS: Omeprazole 20 MG CAPSULE.DR PO ×2 (08:49→16:00)
[2023-09-15] MEDS: Escitalopram Oxalate 10 MG TABLET PO (08:49)
[2023-09-15] MEDS: Metoprolol Succinate ER 50 MG TAB.ER.24H PO (08:49)
[2023-09-15] MEDS: Atorvastatin Calcium 40 MG TABLET PO (08:49)
[2023-09-15] MEDS: Levothyroxine Sodium 50 MCG TABLET PO (08:50)
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
[2023-09-15] MEDS: Aspirin 81 MG TAB.CHEW PO (09:22)
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
[2023-09-15 10:51] VITALS: BP 119/71; PULSE 73; RESP 20; TEMP 36.4; O2SAT 93
[2023-09-15 12:13] LABS: MANUAL DIFF FLAG NO
[2023-09-15 12:18] LABS: Basophils Percent Auto 0.4 % (0-2); Eosinophils Absolute Auto 0.1 X10*3/uL (0.0-0.4); Eosinophils Percent Auto 1.7 % (0-4); Hematocrit 30.9 % (42.0-52.0); Hemoglobin 10.4 g/dl (14.0-18.0); Imm Gran Abs Auto 0.02 X10*3/uL (0.00-0.03); Imm Gran Pct Auto 0.4 % (0.0-0.4); Lymphocytes Absolute Auto 0.8 X10*3/uL (1.2-4.9); Mean Corpuscular HGB Conc 33.7 g/dl (31.0-36.0); Mean Corpuscular Hemoglobin 33.4 pg (27.0-33.0); Mean Corpuscular Volume 99.4 fL (80.0-98.0); Monocytes Absolute Auto 0.5 X10*3/uL (0.1-1.2); Monocytes Percent Auto 8.8 % (2-11); Neutrophils Percent Auto 73.7 % (45-73); Red Blood Count 3.11 X10*6/uL (4.60-5.80); Red Cell Distribution Width 15.5 % (11.0-16.0); White Blood Count 5.5 X10*3/uL (4.8-10.8)
[2023-09-15 12:36] LABS: Anion Gap 11 (12-20); Blood Urea Nitrogen 21 mg/dL (9-16); Calcium 8.4 mg/dL (8.4-10.2); Carbon Dioxide 26 mmol/L (22-29); Chloride 108 mmol/L (96-108); Creatinine Clr Calc Pharmacy 66.3; Estimated Glomerular Filt Rate 55; Glucose Random 107 mg/dL (60-115); Sodium 141 mmol/L (135-145)
[2023-09-15 12:40] LABS: INTERNATIONAL NORM RATIO 1.1 (0.9-1.1); Prothrombin Time 13.2 SEC (11.1-13.3)
[2023-09-15 13:54] LABS: Mean Platelet Volume 11.3 fL (9.4-12.4); Platelet Count 150 X10*3/uL (160-400)
[2023-09-15 15:26] VITALS: BP 115/54; PULSE 67; RESP 18; TEMP 36.6; O2SAT 98
[2023-09-15 19:09] VITALS: BP 116/70; PULSE 62; RESP 18; TEMP 36.9; O2SAT 100
--- NOTE | 2023-09-15 19:53 | PC.NURSE ---
right buttock open area 0.5x0.5 cm .Pt stated that he had this wound when he was in [facility] , also there is DTI to coccyx
[2023-09-15] MEDS: Gabapentin 300 MG CAPSULE PO (21:51)
[2023-09-15] MEDS: QUEtiapine Fumarate 100 MG TABLET PO (21:52)
[2023-09-15] MEDS: traZODone HCL 50 MG TABLET PO (21:52)
[2023-09-15] MEDS: Acetaminophen 325 MG TABLET 650 MG PO (21:52)
[2023-09-15] MEDS: Ammonium Lactate 12 % Lotion 226 GM BOTTLE 1 APPL TOPICAL (21:53)
--- NOTE | 2023-09-15 22:05 | PC.NURSE ---
Pt was coughing during dinner time , RN assessed pt and he stated that he was choking on the meat . Pt was able to clear his throat and he was able to finish his meal . Per pt statement, the meat was cut in a small squares that caused choking. No more choking episodes tonight
[2023-09-15 23:25] VITALS: BP 103/61; PULSE 62; RESP 18; TEMP 36.7; O2SAT 97
[2023-09-16] MEDS: Enoxaparin Sodium 100 MG/ML SYRINGE SUBCUT (00:39)
[2023-09-16] MEDS: 0.9 % Sodium Chloride Flush 3 ML SYRINGE IVFLUSH ×3 (00:39→15:28)
[2023-09-16 04:00] VITALS: BP 117/66; PULSE 67; RESP 18; TEMP 37; O2SAT 99
[2023-09-16] MEDS: Omeprazole 20 MG CAPSULE.DR PO ×2 (06:13→15:28)
[2023-09-16] MEDS: Levothyroxine Sodium 50 MCG TABLET PO (06:13)
[2023-09-16 07:14] VITALS: BP 108/59; PULSE 73; RESP 20; TEMP 36.2; O2SAT 96
[2023-09-16 09:43] LABS: Troponin-I High Sensitivity 607.3 ng/L (<3.5-35.0)
[2023-09-16] MEDS: Metoprolol Succinate ER 50 MG TAB.ER.24H PO (10:12)
[2023-09-16] MEDS: Atorvastatin Calcium 40 MG TABLET PO (10:12)
[2023-09-16] MEDS: Escitalopram Oxalate 10 MG TABLET PO (10:12)
[2023-09-16] MEDS: Aspirin 81 MG TAB.CHEW PO (10:12)
[2023-09-16] MEDS: Ammonium Lactate 12 % Lotion 226 GM BOTTLE 1 APPL TOPICAL ×2 (10:13→21:26)
[2023-09-16 11:12] VITALS: BP 116/69; PULSE 73; RESP 20; TEMP 36.3; O2SAT 97
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
[2023-09-16 15:27] VITALS: BP 114/66; PULSE 60; RESP 20; TEMP 36.6; O2SAT 99
[2023-09-16 19:43] VITALS: BP 113/70; PULSE 82; RESP 16; TEMP 37.1; O2SAT 94
[2023-09-16] MEDS: Gabapentin 300 MG CAPSULE PO (21:25)
[2023-09-16] MEDS: traZODone HCL 50 MG TABLET PO (21:25)
[2023-09-16] MEDS: Acetaminophen 325 MG TABLET 650 MG PO (21:25)
[2023-09-16] MEDS: QUEtiapine Fumarate 100 MG TABLET PO (21:25)
[2023-09-16] MEDS: Hydrocortisone 1 % Cream 28.35 GM TUBE 1 APPL TOPICAL (21:41)
[2023-09-17] VITALS (8 sets, daily range): BP systolic 114–156; BP diastolic 68–93; PULSE 63–81; RESP 16–18; TEMP 36.2–36.8; O2SAT 96–100
[2023-09-17] MEDS: 0.9 % Sodium Chloride Flush 3 ML SYRINGE IVFLUSH ×4 (00:56→21:19)
[2023-09-17] MEDS: Omeprazole 20 MG CAPSULE.DR PO ×2 (06:31→16:42)
[2023-09-17] MEDS: Levothyroxine Sodium 50 MCG TABLET PO (06:31)
[2023-09-17 07:24] LABS: Hematocrit 31.6 % (42.0-52.0); Hemoglobin 10.5 g/dl (14.0-18.0); Mean Corpuscular HGB Conc 33.2 g/dl (31.0-36.0); Mean Corpuscular Volume 99.4 fL (80.0-98.0); Mean Platelet Volume 11.9 fL (9.4-12.4); Platelet Count 164 X10*3/uL (160-400); Red Blood Count 3.18 X10*6/uL (4.60-5.80); Red Cell Distribution Width 15.7 % (11.0-16.0); White Blood Count 5.9 X10*3/uL (4.8-10.8)
[2023-09-17] MEDS: Metoprolol Succinate ER 50 MG TAB.ER.24H PO (08:39)
[2023-09-17] MEDS: Escitalopram Oxalate 10 MG TABLET PO (08:39)
[2023-09-17] MEDS: Aspirin 81 MG TAB.CHEW PO (08:39)
[2023-09-17] MEDS: Atorvastatin Calcium 40 MG TABLET PO (08:39)
[2023-09-17] MEDS: Ammonium Lactate 12 % Lotion 226 GM BOTTLE 1 APPL TOPICAL ×2 (08:42→21:37)
--- NOTE | 2023-09-17 10:06 | HO.WOUND ---
Wound Consult: Initial 77yr old Male admitted to [facility] - See progress notes and H&P for detailed history.? Wound consult placed for Coccyx and Right Buttock wound POA.? Patient agreeable to assessment and photo documentation.? The patient appears to be tall for the bed he was boosted and appeared to fit better however due to his comfort he slide down in the bed - will work with direct care team to investigate if we have longer bed or bed lengthening kits available. Bilateral Lower legs noted for venous stasis dermatitis - hemosiderin stainaging noted with some purpura noted. no swelling and patient denies pain. Various wounds noted throughout his legs in various stages of healing - wound beds are scabbed over and not open at this time. Continue with provider orders of topical cream / lotion. Sacrum and Buttock Sacrum Etiology: Deep Tissue Injury ?Present on Admission Measurements: see charting for detailed measurement Wound Bed: there are areas of dark maroon purple nonblanching intact tissue these appear more consistent with ecchymosis than with deep tissue injury however patient is able to recall clears details of this being a resolving pressure injury that has been previously treated at [facility], [place]. The pigmentation changes although are over a bony prominence they are not completely consistent with pressure but do share in some characteristic and since present on admission will capture as Pressure injury. The topical treatment would remain the same irregardless of the etiology. Drainage / Odor: None Edges: ? Irregular and fading Sinai wound: ?yellow green blue bruising noted - No Induration, Fluctuance or Warmth noted Pain: none Goals of Treatment: ? Foam dressing to protect from friction and aid in pressure redistribution. Right buttock Etiology:Stage 2 Pressure Injury ?Present on Admission Measurements: see charting for detailed measurement Wound Bed: there are areas of dark maroon purple blanching intact tissue these appear more consistent with Chronic MASD than with deep tissue injury however patient reports pain and tenderness to the right buttock area and reports this is a pressure injury he is able to recall clear details of this being a resolving pressure injury that has been previously treated at [facility], [place]. The wound bed is red moist tissue and more consistent with impact from such as a fall but the patient is adamant this is secondary to pressure and not his recent fall. he reports he had the wounds prior to him sustaining a fall. The topical treatment would remain the same irregardless of the etiology. Drainage / Odor: None Edges: ? Irregular and well defined Sinai wound: ?MASD Chronic Moisture - red light purple pigmentation noted to bilateral buttock remains intact and blanchable - No Induration, Fluctuance or Warmth noted Pain: tenderness reported to right buttock Goals of Treatment: ? Barrier cream to protect from friction and moisture and allow for autolytic healing. Recommendations: 1. Turn and Reposition every 2 hours and as needed for patient comfort.? Use pillows or wedges to support off loading positions. 2. Off Load all bony prominences with use of pillows and heel boots if needed.? Apply Preventative foams where needed. ? 3. Monitor for incontinence and moisture control, use barrier creams when needed for prevention and treatment. 4. Provide adequate and supplemental nutrition.? 5. Order low air loss mattress. and Bed Length Tax Technician. 6. When applicable maintain blood glucose levels per Providers order. 7. Sacrum - Apply sacral foam dressing peel back and assess Q shift and change every 3 days and PRN. 8. Bilateral Buttock and Perineal area - Routine cleansing and Incontinence care, dry well. Apply barrier cream to area twice daily and PRN after episodes of incontinence. 9. Bilateral Lower Legs - Elevate lower legs and heels off of bed surface with pillows. Apply cream and or lotion as ordered. Re-consult wound care Nurse for wound deterioration or wound changes.
--- NOTE | 2023-09-17 10:23 | MHC.CM.PN ---
Per ROUNDS discussion, Care Team has approved Patient to return to [facility]; CM will follow.
--- NOTE | 2023-09-17 12:00 | PM.PNCARD ---
Subjective Subjective Date of Service: 09/17/23 Interval history: Seen examined at bedside. Denying any further chest discomfort. He has been treated with 48 hours of heparin. Physical Exam Vital Signs: Last Vital Signs Temp 97.2 F 09/17/23 07:44 Pulse 65 09/17/23 07:44 Resp 18 09/17/23 07:44 BP 129/74 09/17/23 07:44 Pulse Ox 98 09/17/23 07:44 O2 Del Method Room Air 09/17/23 07:44 BMI result Body Mass Index 35.8 GENERAL APPEARANCE: in no acute distress, pleasant. NECK: no carotid bruit, no jugular venous distention. SKIN: no suspicious lesions, warm and dry. HEART: no murmurs, regular rate and rhythm. LUNGS: clear to auscultation bilaterally. ABDOMEN: soft, nontender. EXTREMITIES: no edema. PERIPHERAL PULSES: equal. NEUROLOGIC: No gross deficits, AAO X 3 Objective Labs and Meds 09/17/23 06:18 09/15/23 11:45 Lab results: Laboratory Results - last 24 hr 09/17/23 06:18 WBC 5.9 RBC 3.18 L Hgb 10.5 L Hct 31.6 L MCV 99.4 H MCH 33.0 MCHC 33.2 RDW 15.7 Plt Count 164 MPV 11.9 Absolute Nucleated RBC 0.000 Nucleated RBC % (auto) 0.0 Progress Note: A&P Assessment and plan (1) NSTEMI (non-ST elevated myocardial infarction): Status: Acute Plan 77-year-old gentleman with background of coronary disease which due to his wish was treated with medical management at [facility]. He was admitted with major depression and had chest pain and ruled in for NSTEMI. He has not agreeable to any procedures. Recommend starting him on Plavix in addition to aspirin if he agrees. LAD territory wall motion echocardiography which goes along with known disease in the LAD in the severe range from previous cardiac catheterization at [facility]. As mentioned, patient is not in favor of any invasive procedures and will be medically treated. Stable from cardiovascular point of view. Time Spent With Patient Time: Total time managing care of this patient today ____ minutes. Progress Note: Quality Stroke Does the patient have a stroke diagnosis?: No Procedures Date of Service Date of Service: 09/17/23
--- NOTE | 2023-09-17 12:42 | PC.NURSE ---
Patient refusing to take plavix, new order by hospitalist. Patient educated multiple times on the importance of being compliant with new medication. Patient adamant about not wanting any new changes to his medication regimen. Hospitalist notified.
--- NOTE | 2023-09-17 13:31 | MHC.CM.PN ---
[facility]
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
--- NOTE | 2023-09-17 15:03 | MHC.CARE ---
Pt declined CV and declined to return to [facility], consult done with Dr. Enzo Holland and patient does not meet section 12B currently. Pt will be referred to case management for discharge planning.
--- NOTE | 2023-09-17 15:05 | MHC.CM.PN ---
CM met with patient at bedside for close to an hour, along with a Care Team Regulatory Coordinator/Deja. Patient has chosen to not return to the [facility](Deja explained that returning to [facility] is voluntary/no Section 12 needs). CM spoke with MD and discussed a PT eval and a capacity eval to assist with disposition (STR VS LTC VS home with services and report of dc to [facility]). CM will continue to follow.
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
[2023-09-17] MEDS: Enoxaparin Sodium 40 MG/0.4 ML SYRINGE SUBCUT (18:22)
[2023-09-17] MEDS: QUEtiapine Fumarate 100 MG TABLET PO (21:19)
[2023-09-17] MEDS: Gabapentin 300 MG CAPSULE PO (21:19)
[2023-09-17] MEDS: Acetaminophen 325 MG TABLET 650 MG PO (21:26)
[2023-09-17] MEDS: traZODone HCL 50 MG TABLET PO (21:26)
[2023-09-18 03:39] VITALS: BP 135/79; PULSE 65; RESP 18; TEMP 36.8; O2SAT 95
[2023-09-18] MEDS: Omeprazole 20 MG CAPSULE.DR PO ×2 (05:51→16:42)
[2023-09-18] MEDS: Levothyroxine Sodium 50 MCG TABLET PO (05:51)
[2023-09-18 06:58] VITALS: BP 148/72; PULSE 64; RESP 18; TEMP 35.5; O2SAT 98
[2023-09-18] MEDS: Escitalopram Oxalate 10 MG TABLET PO (07:59)
[2023-09-18] MEDS: Ammonium Lactate 12 % Lotion 226 GM BOTTLE 1 APPL TOPICAL ×2 (07:59→20:53)
[2023-09-18] MEDS: Aspirin 81 MG TAB.CHEW PO (07:59)
[2023-09-18] MEDS: Atorvastatin Calcium 40 MG TABLET PO (08:00)
[2023-09-18] MEDS: Metoprolol Succinate ER 50 MG TAB.ER.24H PO (08:00)
[2023-09-18] MEDS: 0.9 % Sodium Chloride Flush 3 ML SYRINGE IVFLUSH ×3 (08:03→20:53)
--- NOTE | 2023-09-18 08:22 | PC.NURSE ---
during morning med pass patient refused plavix stating this is not a medication he takes and will not start now, pt educated on use and importance of plavix but still refused medication, Dr. Valiente made aware
[2023-09-18 10:55] VITALS: BP 121/71; PULSE 59; RESP 16; TEMP 35.5; O2SAT 96
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
--- NOTE | 2023-09-18 11:33 | P.CNPS_ITS ---
History of Present Illness Date of Service: 09/18/2023 Chief Complaint: Increase troponins Sources of Information: patient interviewed and chart reviewed HPI Narrative: Reason for consult was for capacity evaluation. Please review extensive documentation already in the chart from psychiatric admission to [facility], subsequent transfer to the medical floor in the context of elevated troponins and treatment while on the medical floor /telemetry. Noted cares evaluation on 09/17/2023 and discussion with psychiatrist that his care for patient while on [facility] and that no grounds for Section 12 and patient declining return to [facility]. Noted physical therapy evaluation recommending short-term rehab in the context of fall risk. Met with patient. He is verbose, which appears to be baseline. No acute psychiatric issues i.e. consistent with cares evaluation on 09/17/2023. Regarding current medical needs, patient is clearly aware of reasons for being fat cert from [facility] to telemetry and subsequently to the medical floor as a step-down. Also remembers underwriter from meeting with him last weekend. Was able to communicate options regarding cardiac issues that has discussed in the past and also recently and overall conservative management preferred by patient and outpatient cardiology which is consistent with medical team documentation. He did express anxiety regarding paperwork that was presented to him that actually appears more consistent with potential healthcare proxy assignment and such things. Reports that his walking is not as stable as he is weaker having spent almost 2 days in the bed. At home uses a walking cane. Finds a walker here helpful. Is very aware of what PT recommended and they also discussed fall risks. Patient is also very aware of challenges around disposition planning and clearly states that if he was to return home, he does not have the finances and that utilities are likely shut off, he has no shoes as they were taken off him (correct) when he was originally transferred to [facility], he does not have keys to get into his home. Also regarding mobility at home, is unsure if he could climb the stairs and correctly states that has not been tested while at the hospital. He is clear that he is open to short-term rehab and would [place], [place] located. He is also open to discharge to home with support services such as visiting nurse services, in-home physical therapy, ensuring that his home is safe to return to [place] utilities, able to access same, has shoes etc. these all seem reasonable considerations. Past Psychiatric History: Discharge [facility] 09/13 to med floor for chest pain Personal & Social History: in [facility]. Unclear feasibility of current living situation ie utilities etc.... [facility] Medical History Dermatitis HLD (hyperlipidemia) HTN (hypertension) CAD (coronary artery disease) Family History: Denies Social History: Retired living with his . Limited social support Trauma History: Denies Diagnostics Vital Signs (24Hr): Vital Signs - 24 hr 09/17/23 12:00 09/17/23 15:52 09/17/23 16:00 Temperature 98.0 F Pulse Rate 73 73 72 Respiratory Rate 18 18 Blood Pressure 118/76 118/76 Pulse Oximetry 96 96 Oxygen Delivery Method Room Air 09/17/23 19:12 09/17/23 23:03 09/18/23 03:39 Temperature 98 F 97.3 F 98.2 F Pulse Rate 78 63 65 Respiratory Rate 18 18 18 Blood Pressure 132/93 H 156/86 H 135/79 Pulse Oximetry 97 100 95 Oxygen Delivery Method Room Air Room Air Room Air 09/18/23 06:58 09/18/23 10:55 Temperature 96 F L 96 F L Pulse Rate 64 59 Respiratory Rate 18 16 Blood Pressure 148/72 H 121/71 Pulse Oximetry 98 96 Oxygen Delivery Method Room Air Room Air BMI result Body Mass Index 35.8 Labs 09/17/23 06:18 09/15/23 11:45 Labs: Laboratory Results - last 48 hr 09/17/23 09/18/23 06:18 08:18 WBC 5.9 RBC 3.18 L Hgb 10.5 L Hct 31.6 L MCV 99.4 H MCH 33.0 MCHC 33.2 RDW 15.7 Plt Count 164 MPV 11.9 Absolute Nucleated RBC 0.000 Nucleated RBC % (auto) 0.0 Hold Purple Top SEE NOTE Mental Status Exam Mental Status Exam Narrative: Pleasant. Engaged. Hospital clothing. Self-care is fair. Verbose. Tangential, but redirectable. Largely euthymic, with appropriate anxiety regarding disposition planning and considerations and some frustration around communication. No SI. No HI. No psychosis. Insight and judgment does appear fair Medications Medications Current Medications Acetaminophen (Acetaminophen 325 Mg Tablet) 650 mg PO Q6H PRN PRN Reason: Headache/Pain Mild Scale (1-3) Last Admin: 09/17/23 21:26 Dose: 650 mg Al Hydroxide/Mg Hydroxide (Magnesium Hydrox/Alum Hydrox 30 Ml Oral.Susp) 30 ml PO Q6H PRN PRN Reason: Heartburn/Nausea Aspirin (Aspirin 81 Mg Tab.Chew) 81 mg PO DAILY [facility] Last Admin: 09/18/23 07:59 Dose: 81 mg Atorvastatin Calcium (Atorvastatin Calcium 40 Mg Tablet) 40 mg PO DAILY [facility] Last Admin: 09/18/23 08:00 Dose: 40 mg Dorzolamide/Timolol (Dorzolamide/Timolo 2.23%/0.68% 10 Ml Drbtl) 1 drop EYE- BOTH BID [facility] Last Admin: 09/18/23 08:01 Dose: Not Given Enoxaparin Sodium (Enoxaparin Sodium 40 Mg/0.4 Ml Syringe) 40 mg SUBCUT Q24H [facility] Last Admin: 09/17/23 18:22 Dose: 40 mg Escitalopram Oxalate (Escitalopram Oxalate 10 Mg Tablet) 10 mg PO DAILY [facility] Last Admin: 09/18/23 07:59 Dose: 10 mg Gabapentin (Gabapentin 300 Mg Capsule) 300 mg PO BEDTIME [facility] Last Admin: 09/17/23 21:19 Dose: 300 mg Hydrocortisone (Hydrocortisone 1 % Cream 28.35 Gm Tube) 1 appl TOPICAL BID [facility] Last Admin: 09/18/23 08:01 Dose: Not Given Hydroxyzine HCl (Hydroxyzine Hcl 25 Mg Tablet) 25 mg PO Q6H PRN PRN Reason: Anxiety Lactic Acid (Ammonium Lactate 12 % Lotion 226 Gm Bottle) 1 appl TOPICAL BID [facility]; Protocol Last Admin: 09/18/23 07:59 Dose: 1 appl Latanoprost (Latanoprost 0.005 % Ophth Misty 2.5 Ml Drops) 1 drop EYE-BOTH BEDTIME [facility] Last Admin: 09/17/23 08:42 Dose: Not Given Levothyroxine Sodium (Levothyroxine Sodium 50 Mcg Tablet) 50 mcg PO DAILY@0600 [facility] Last Admin: 09/18/23 05:51 Dose: 50 mcg Magnesium Hydroxide (Milk Of Magnesia 30 Ml Oral.Susp) 30 ml PO DAILY PRN PRN Reason: Constipation Metoprolol Succinate (Metoprolol Succinate Er 50 Mg Tab.Er.24h) 50 mg PO DAILY [facility]; Protocol Last Admin: 09/18/23 08:00 Dose: 50 mg Omeprazole (Omeprazole 20 Mg Capsule.Dr) 20 mg PO BID@0630,1630 [facility] Last Admin: 09/18/23 05:51 Dose: 20 mg Ondansetron HCl (Ondansetron Hcl 4 Mg/2 Ml Vial) 4 mg IVPUSH Q8H PRN PRN Reason: Nausea and Vomiting Quetiapine Fumarate (Quetiapine Fumarate 50 Mg Tablet) 50 mg PO BID PRN PRN Reason: agitation Quetiapine Fumarate (Quetiapine Fumarate 100 Mg Tablet) 100 mg PO BEDTIME [facility] Last Admin: 09/17/23 21:19 Dose: 100 mg Senna (Sennosides 8.6 Mg Tablet) 17.2 mg PO BEDTIME PRN PRN Reason: Constipation Sodium Chloride (0.9 % Sodium Chloride Flush 3 Ml Syringe) 3 ml IVFLUSH QSHIFT [facility] Last Admin: 09/18/23 08:03 Dose: 3 ml Trazodone HCl (Trazodone Hcl 50 Mg Tablet) 50 mg PO BEDTIME MRX1 PRN PRN Reason: Insomnia Last Admin: 09/17/23 21:26 Dose: 50 mg Allergies Allergies Allergy/AdvReac Type Severity Reaction Status Date / Time No Known Allergies Allergy Verified 09/07/23 14:57 Assessment & Plan Assessment & Plan (1) NSTEMI (non-ST elevated myocardial infarction): Status: Acute Code(s): I21.4 - Non-ST elevation (NSTEMI) myocardial infarction Plan Overall patient presents with capacity around disposition planning decisions. Clearly understands evaluations around mobility, needs etc. . [place], [place] is currently, which is reasonable. Also open to in-home services such as visiting nurse, in-home physical therapy, but also would like to make sure he is actually able to return to his home i.e. has a loza to get in, utilities are on, again reasonable. Otherwise no acute psychiatric issues. Please re-consult if needed. Total time managing care of this patient today ____ minutes.
[2023-09-18 15:48] VITALS: BP 126/87; PULSE 60; RESP 16; TEMP 36; O2SAT 94
[2023-09-18] MEDS: Enoxaparin Sodium 40 MG/0.4 ML SYRINGE SUBCUT (16:42)
[2023-09-18 19:59] VITALS: BP 146/72; PULSE 65; RESP 20; TEMP 36.2; O2SAT 99
[2023-09-18] MEDS: QUEtiapine Fumarate 100 MG TABLET PO (20:53)
[2023-09-18] MEDS: Hydrocortisone 1 % Cream 28.35 GM TUBE 1 APPL TOPICAL (20:53)
[2023-09-18] MEDS: Gabapentin 300 MG CAPSULE PO (20:53)
[2023-09-18] MEDS: traZODone HCL 50 MG TABLET PO (20:55)
[2023-09-18 23:15] VITALS: RESP 18
[2023-09-19 03:16] VITALS: BP 150/75; PULSE 62; RESP 18; TEMP 36.2; O2SAT 99
[2023-09-19] MEDS: Levothyroxine Sodium 50 MCG TABLET PO (05:40)
[2023-09-19] MEDS: Omeprazole 20 MG CAPSULE.DR PO ×2 (05:40→17:10)
[2023-09-19 07:03] VITALS: BP 120/68; PULSE 65; RESP 16; TEMP 36.1; O2SAT 95
[2023-09-19 07:13] LABS: Hematocrit 33.2 % (42.0-52.0); Mean Corpuscular HGB Conc 33.1 g/dl (31.0-36.0); Mean Corpuscular Hemoglobin 33.5 pg (27.0-33.0); Mean Corpuscular Volume 101.2 fL (80.0-98.0); Mean Platelet Volume 11.9 fL (9.4-12.4); Platelet Count 159 X10*3/uL (160-400); Red Blood Count 3.28 X10*6/uL (4.60-5.80); Red Cell Distribution Width 15.6 % (11.0-16.0); White Blood Count 6.6 X10*3/uL (4.8-10.8)
[2023-09-19] MEDS: 0.9 % Sodium Chloride Flush 3 ML SYRINGE IVFLUSH ×3 (08:18→20:23)
[2023-09-19] MEDS: Escitalopram Oxalate 10 MG TABLET PO (08:19)
[2023-09-19] MEDS: Atorvastatin Calcium 40 MG TABLET PO (08:19)
[2023-09-19] MEDS: Metoprolol Succinate ER 50 MG TAB.ER.24H PO (08:19)
[2023-09-19] MEDS: Aspirin 81 MG TAB.CHEW PO (08:19)
[2023-09-19] MEDS: Ammonium Lactate 12 % Lotion 226 GM BOTTLE 1 APPL TOPICAL ×2 (08:19→20:25)
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
[2023-09-19 11:43] VITALS: BP 134/74; PULSE 74; TEMP 36.6; O2SAT 96
[2023-09-19] MEDS: Enoxaparin Sodium 40 MG/0.4 ML SYRINGE SUBCUT (17:10)
[2023-09-19 19:44] VITALS: BP 152/76; PULSE 75; RESP 18; TEMP 36.2; O2SAT 95
[2023-09-19] MEDS: Gabapentin 300 MG CAPSULE PO (20:23)
[2023-09-19] MEDS: QUEtiapine Fumarate 100 MG TABLET PO (20:23)
[2023-09-19] MEDS: traZODone HCL 50 MG TABLET PO (20:23)
[2023-09-19 23:13] VITALS: BP 134/79; PULSE 69; RESP 16; TEMP 36.1; O2SAT 98
[2023-09-20 03:29] VITALS: BP 116/72; PULSE 63; RESP 16; TEMP 36.1; O2SAT 97
[2023-09-20] MEDS: Levothyroxine Sodium 50 MCG TABLET PO (06:12)
[2023-09-20] MEDS: Omeprazole 20 MG CAPSULE.DR PO ×2 (06:12→17:03)
[2023-09-20 07:12] VITALS: BP 119/67; PULSE 64; RESP 16; TEMP 36.1; O2SAT 96
[2023-09-20] MEDS: Atorvastatin Calcium 40 MG TABLET PO (07:40)
[2023-09-20] MEDS: Metoprolol Succinate ER 50 MG TAB.ER.24H PO (07:40)
[2023-09-20] MEDS: 0.9 % Sodium Chloride Flush 3 ML SYRINGE IVFLUSH ×3 (07:40→22:31)
[2023-09-20] MEDS: Aspirin 81 MG TAB.CHEW PO (07:40)
[2023-09-20] MEDS: Escitalopram Oxalate 10 MG TABLET PO (07:40)
[2023-09-20] MEDS: Ammonium Lactate 12 % Lotion 226 GM BOTTLE 1 APPL TOPICAL (07:41)
[2023-09-20 10:35] VITALS: BMI 35.8
--- NOTE | 2023-09-20 10:51 | MHC.CLN ---
NUTRITION DIET=CARDIAC. INTAKE APPEARS GOOD, 50-100%. ADDING ENSURE MAX PROTEIN TO INCREASE PROTEIN INTAKE/PROMOTE SKIN INTEGRITY. ENSURE MAX BID PROVIDES 300 KCALS, 60 G PROTEIN. SKIN WITH STAGE 2 RIGHT BUTTOCK AND DTI COCCYX. CONTINUE CARDIAC DIET WITH NUTRITIONAL SUPPLEMENT. FOLLOW FOR PO INTAKE AND SKIN INTEGRITY. SEE CLINICAL NUTRITION ASSESSMENT 09/20/23.
[2023-09-20 11:23] VITALS: BP 130/72; PULSE 68; RESP 17; TEMP 36.6; O2SAT 97
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
[2023-09-20 15:23] VITALS: BP 135/63; PULSE 60; RESP 16; TEMP 36.3; O2SAT 100
[2023-09-20] MEDS: Enoxaparin Sodium 40 MG/0.4 ML SYRINGE SUBCUT (17:02)
[2023-09-20 19:19] VITALS: BP 131/61; PULSE 66; RESP 16; TEMP 36.4; O2SAT 100
[2023-09-20] MEDS: Hydrocortisone 1 % Cream 28.35 GM TUBE 1 APPL TOPICAL (19:35)
[2023-09-20] MEDS: QUEtiapine Fumarate 100 MG TABLET PO (22:03)
[2023-09-20] MEDS: Gabapentin 300 MG CAPSULE PO (22:03)
[2023-09-20] MEDS: Acetaminophen 325 MG TABLET 650 MG PO (22:08)
[2023-09-20 23:19] VITALS: BP 124/68; PULSE 65; RESP 16; TEMP 36.1; O2SAT 99
[2023-09-21 04:00] VITALS: BP 133/72; PULSE 57; RESP 18; TEMP 36.2; O2SAT 98
[2023-09-21] MEDS: Omeprazole 20 MG CAPSULE.DR PO ×2 (06:11→17:12)
[2023-09-21] MEDS: Levothyroxine Sodium 50 MCG TABLET PO (06:11)
[2023-09-21 08:00] VITALS: BP 122/76; PULSE 61; RESP 17; TEMP 36.1; O2SAT 99
[2023-09-21] MEDS: Escitalopram Oxalate 10 MG TABLET PO (08:54)
[2023-09-21] MEDS: Atorvastatin Calcium 40 MG TABLET PO (08:54)
[2023-09-21] MEDS: Hydrocortisone 1 % Cream 28.35 GM TUBE 1 APPL TOPICAL ×2 (08:54→22:26)
[2023-09-21] MEDS: Aspirin 81 MG TAB.CHEW PO (08:54)
[2023-09-21] MEDS: Metoprolol Succinate ER 50 MG TAB.ER.24H PO (08:54)
[2023-09-21] MEDS: 0.9 % Sodium Chloride Flush 3 ML SYRINGE IVFLUSH ×3 (08:55→22:30)
[2023-09-21] MEDS: Ammonium Lactate 12 % Lotion 226 GM BOTTLE 1 APPL TOPICAL ×2 (08:57→22:30)
--- NOTE | 2023-09-21 10:23 | PC.NURSE ---
Pt refused to work with PT this AM, aware of situation, pt states he is tired and wants to rest. RESOLUTION AGENT reported that pt also refusing to do any AM care. Pt took all medications and allowed this RN to apply creams and lotions to affected areas without difficulty.
[2023-09-21 11:16] VITALS: BP 129/86; PULSE 59; RESP 18; TEMP 36.3; O2SAT 97
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
[2023-09-21 16:00] VITALS: BP 132/74; PULSE 62; RESP 18; TEMP 36.2; O2SAT 99
[2023-09-21] MEDS: Enoxaparin Sodium 40 MG/0.4 ML SYRINGE SUBCUT (17:12)
[2023-09-21 19:21] VITALS: BP 134/75; PULSE 61; RESP 17; TEMP 36.3; O2SAT 100
[2023-09-21] MEDS: Gabapentin 300 MG CAPSULE PO (22:26)
[2023-09-21] MEDS: QUEtiapine Fumarate 100 MG TABLET PO (22:26)
[2023-09-21 23:45] VITALS: BP 144/70; PULSE 60; RESP 16; TEMP 36.2; O2SAT 99
[2023-09-22] VITALS (7 sets, daily range): BP systolic 121–145; BP diastolic 69–79; PULSE 62–77; RESP 14–18; TEMP 36.2–36.9; O2SAT 95–98
[2023-09-22] MEDS: Omeprazole 20 MG CAPSULE.DR PO ×2 (06:31→16:56)
[2023-09-22] MEDS: Levothyroxine Sodium 50 MCG TABLET PO (06:31)
[2023-09-22] MEDS: Atorvastatin Calcium 40 MG TABLET PO (07:58)
[2023-09-22] MEDS: Aspirin 81 MG TAB.CHEW PO (07:58)
[2023-09-22] MEDS: Escitalopram Oxalate 10 MG TABLET PO (07:59)
[2023-09-22] MEDS: Hydrocortisone 1 % Cream 28.35 GM TUBE 1 APPL TOPICAL ×2 (07:59→21:00)
[2023-09-22] MEDS: Ammonium Lactate 12 % Lotion 226 GM BOTTLE 1 APPL TOPICAL ×2 (07:59→21:00)
[2023-09-22] MEDS: Metoprolol Succinate ER 50 MG TAB.ER.24H PO (07:59)
[2023-09-22] MEDS: 0.9 % Sodium Chloride Flush 3 ML SYRINGE IVFLUSH ×3 (08:00→23:49)
--- NOTE | 2023-09-22 09:23 | MHC.CLN ---
F/U DIET=CARDIAC. INTAKE APPEARS GOOD, 75-100%. ENSURE MAX PROTEIN TO INCREASE PROTEIN INTAKE/PROMOTE SKIN INTEGRITY. ENSURE MAX BID PROVIDES 300 KCALS, 60 G PROTEIN. SKIN WITH STAGE 2 RIGHT BUTTOCK AND DTI COCCYX. CONTINUE CARDIAC DIET WITH NUTRITIONAL SUPPLEMENT. FOLLOW FOR PO INTAKE AND SKIN INTEGRITY.
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
--- NOTE | 2023-09-22 15:29 | MHC.CM.PN ---
CM MET WITH PT AT BEDSIDE. PT HAS BEEN MEDICALLY CLEARED AND P.T. HAS RECOMMENDED HOME WITH SERVICES/WALKER. PT VERY ARGUMENTATIVE AND REFUSES TO GO HOME. PT STATES HE WAS WILLING TO GO TO REHAB BUT NOT HOME. CM EXPLAINED THAT P.T. HAS CLEARED HIM FOR HOME. PT STATES HE HAS NO KOCH TO GET IN TO HIS HOME YET KOCH FOUND IN HIS BELONGINGS. PT REFUSES TO GIVE NAME OF MD IN HIS COMMUNITY SO CM CAN SET UP HOME SERVICES. [facility] IN HIS AREA FOLLOWING, SAKINA SPOKE WITH TRISTEN FROM PROTECTIVE SERVICES AND UPDATED HIM ON SITUATION ([phone]) CM MGMT AWARE THAT PT IS REFUSING TO LEAVE. IMM/HINN 12 DELIVERED, PT REFUSED TO SIGN IMM AND HINN 12 FORM, COPIES LEFT AT BEDSIDE, PT STATES I DON'T WANT THAT . CM WILL CONTINUE TO FOLLOW.
[2023-09-22] MEDS: Enoxaparin Sodium 40 MG/0.4 ML SYRINGE SUBCUT (16:44)
[2023-09-22] MEDS: QUEtiapine Fumarate 100 MG TABLET PO (20:59)
[2023-09-22] MEDS: Gabapentin 300 MG CAPSULE PO (21:00)
[2023-09-23] MEDS: Acetaminophen 325 MG TABLET 650 MG PO ×3 (01:50→14:36)
[2023-09-23 03:06] VITALS: BP 118/67; PULSE 73; RESP 18; TEMP 36.3; O2SAT 96
[2023-09-23] MEDS: Levothyroxine Sodium 50 MCG TABLET PO (06:19)
[2023-09-23] MEDS: Omeprazole 20 MG CAPSULE.DR PO (06:19)
[2023-09-23 06:47] VITALS: BP 149/74; PULSE 69; RESP 16; TEMP 36.6; O2SAT 98
[2023-09-23] MEDS: Aspirin 81 MG TAB.CHEW PO (09:34)
[2023-09-23 09:35] VITALS: BP 149/74; PULSE 69
[2023-09-23] MEDS: Metoprolol Succinate ER 50 MG TAB.ER.24H PO (09:35)
[2023-09-23] MEDS: 0.9 % Sodium Chloride Flush 3 ML SYRINGE IVFLUSH (09:35)
[2023-09-23] MEDS: Escitalopram Oxalate 10 MG TABLET PO (09:35)
[2023-09-23] MEDS: Atorvastatin Calcium 40 MG TABLET PO (09:35)
[2023-09-23] MEDS: Hydrocortisone 1 % Cream 28.35 GM TUBE 1 APPL TOPICAL (09:37)
[2023-09-23] MEDS: Ammonium Lactate 12 % Lotion 226 GM BOTTLE 1 APPL TOPICAL (10:40)
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
--- NOTE | 2023-09-23 14:38 | PC.NURSE ---
Report called to Bobbi at [facility].
--- NOTE | 2023-09-23 14:52 | MHC.CM.PN ---
CM MET WITH PT FROM 0830 HOURS UNTIL 1000 HOURS TO DISCUSS DC PLANNING PT CONTINUES TO REPORT HE CANNOT GO HOME, HOWEVER, AT THAT TIME THERE WERE NO ACCEPTING FACILITIES. CM DISCUSSED GOING HOME WITH SERVICES, GOING TO A LONGTERM, IF HE FELT HE NEEDED TO RETURN TO [facility]PS[facility], AND POSSIBLY GOING TO A HOTEL PT REPORTS NONE OF THESE OPTIONS ARE VIABLE FOR HIM, HE SAYS HE CANNOT GO HOME BECAUSE HIS UTILITIES ARE OFF. CM REMINDED HIM THAT DURING AN EARLIER CONVERSATION, HE STATED HE HAD THE MONEY TO PAY THE UTILITIES, BUT COULD NOT DO SO UNTIL HE RETURNED HOME. PT NOW STATES THAT IS INACCURATE. PT STATES OVER AND OVER THAT HE WANTS TO GO TO STR. STR REFERRAL RE-BROADCASTED [facility] OFFERING A STR BED SAKINA MET WITH PT WHO INITIALLY STATED HE WAS UNSURE IF HE WANTED TO GO TO THAT SNF AND WANTED ANOTHER OPTION CM, EXPERIENCE OFFICER, AND SENIOR QUALITY CONTROL INSPECTOR MET WITH PT TO EXPLAIN THE BARRIERS TO FINDING ANOTHER REHAB BED AND EXPLAINED THE REFERRAL HAD ALREADY BEEN BROADCASTED MORE THAT ONCE, AND THIS WAS THE ONLY OFFER. INFORMATION ABOUT THE REHAB WAS PRINTED AND PRESENTED TO HIM, EVENTUALLY HE AGREED TO ACCEPT BED OFFER. PT DISCHARGED TO [facility] STR VIA [facility] AT 1445
== END 2023-09-23 15:15 | disposition skilled nursing facility (03) | DRG 281 ==
LOC: HO.IMC 09-17 13:30 → HO.S3 09-17 19:02
PROVIDERS: Physician Assistant; Admitting Provider Internal Medicine; Visit Provider Hospitalist
DX: I21.4 Non-ST elevation (NSTEMI) myocardial infarction (principal); I45.2 Bifascicular block; I25.10 Atherosclerotic heart disease of native coronary artery without angina pectoris; E03.9 Hypothyroidism, unspecified; I10 Essential (primary) hypertension; E78.5 Hyperlipidemia, unspecified; F32.9 Major depressive disorder, single episode, unspecified; L89.312 Pressure ulcer of right buttock, stage 2; L89.156 Pressure-induced deep tissue damage of sacral region; Z87.891 Personal history of nicotine dependence; Z79.82 Long term (current) use of aspirin; Z79.890 Hormone replacement therapy; Z79.899 Other long term (current) drug therapy
CPT/HCPCS: 36415; 80048; 82565; 84484; 85025; 85027; 85610; 85730; 93306; 97116; 97162; 97530; J1650; Q9957; S9485

== ENCOUNTER → 2023-09-14 11:15 | Outpatient (BNV) | payer MEDICARE, OTHER, SELFPAY | PROVIDERS: Admitting Provider Internal Medicine; Visit Provider Physician Assistant | DX: I21.4 Non-ST elevation (NSTEMI) myocardial infarction (principal) | CPT/HCPCS: 99223; 99232; 99233; 99239; 99499 ==

== ENCOUNTER → 2023-09-14 11:15 | Outpatient (BNV) | payer MEDICARE, OTHER, SELFPAY | PROVIDERS: Admitting Provider Internal Medicine; Visit Provider Internal Medicine Cardiovascular Disease | DX: I21.4 Non-ST elevation (NSTEMI) myocardial infarction (principal) | CPT/HCPCS: 93306; 99223; 99233 ==

== ENCOUNTER → 2023-09-14 11:15 | Outpatient (BNV) | payer MEDICARE, OTHER, SELFPAY | PROVIDERS: Admitting Provider Internal Medicine; Visit Provider Psychiatry & Neurology Psychiatry | DX: F32.1 Major depressive disorder, single episode, moderate (principal); I21.4 Non-ST elevation (NSTEMI) myocardial infarction | CPT/HCPCS: 99222 ==